=== PATIENT | male | born 1980 | race Caucasian/White ===

== ENCOUNTER 2020-08-05 15:10 | Emergency (ER) | payer OTHER ==
[~2020-08-05] VITALS: Ht 172.7 cm; Wt 85.0 kg
--- NOTE | 2020-08-05 15:27 | NUR ---
PT FROM [facility], BROUGHT IN BY OFFICERS FOR CC OF RIGHT LOWER LEG PAIN AND SWELLING. PT STATES "IM WORRIED ABOUT A BLOOD CLOT". STATES ON SUNDAY LEFT STARTED A BRUISE AND THEN BECAME MORE PAINFUL AND STARTED SWELLING. RIGHT CALF DOES APPEAR TO BE MORE SWOLLEN THEN LEFT UPON ASSESSMENT. PT STATES "IT FEELS LIKE MY SKIN IS A SPONGE". PT WITH PLEASANT AFFECT. 2 OFFICERS AT BEDSIDE.
--- NOTE | 2020-08-05 16:40 | NUR ---
US AT BEDSIDE
[2020-08-05 18:12] VITALS: BP 166/135
== END 2020-08-05 18:21 | disposition home or self-care (01) ==
LOC: ED 15:45
DX: L03.115 Cellulitis of right lower limb (principal); M79.89 Other specified soft tissue disorders
CPT/HCPCS: 99284